=== PATIENT | male | born 1985 | race Caucasian/White ===

== ENCOUNTER → 2018-08-01 08:41 | Outpatient (CLI) | payer OTHER, SELFPAY ==
--- NOTE | 2018-08-01 08:58 | RAD_ITS ---
STUDY: X-RAY CHEST REASON FOR EXAM: Male, 32 years old. Right-sided chest pain for 2 years TECHNIQUE: PA and lateral views of the chest. COMPARISON: None. FINDINGS: The lungs are clear and expanded. There is no demonstrated pleural abnormality. Normal size heart. Normal mediastinum and briseyda. Normal visualized pulmonary arteries. Normal visualized aortic arch and descending thoracic aorta. Normal visualized thoracic spine. Normal visualized ribs, clavicles, and shoulders. There is no demonstrated abnormality of the visualized soft tissue structures of the upper abdomen. RAD/Chest PA and Lateral IMPRESSION: No acute cardiopulmonary process. Electronically Signed: Maynor Franks MD at 18:12 EST , Service support ,
[2018-08-01 09:53] LABS: Absolute Lymphocyte Count 3.55 X10^3/ul (0.83-4.51); Absolute Neutrophil Count 9.6 X10^3/uL (2.0-7.7); Basophil# 0.05 X10^3/uL; Basophil% 0.3 % (0-1); Eosinophil# 0.34 X10^3/uL; Eosinophils% 2.3 % (0-5); Hematocrit 46.1 % (40-54); Hemoglobin 15.3 g/dl (13.0-16.5); Lymphocyte # 3.55 X10^3/ul (4.0); Lymphocyte % 23.9 % (19-41); Mean Corp Hgb Conc 33.2 g/gl (32-36); Mean Corpuscular Volume 93.3 fL (80-94); Monocyte# 1.26 X10^3/uL; Monocyte% 8.5 % (0-10); Neutrophil # 9.61 X10^3/uL (2.7-7.7); Neutrophil % 64.6 % (47-70); Platelet Count 318 K/mm3 (150-450); RBC Distribution Width CV 13.1 % (11.6-14.6); RBC Distribution Width SD 44.8 fl (35.1-43.9); Red Blood Count 4.94 M/mm3 (4.6-6.2); White Blood Count 14.9 K/mm3 (4.4-11.0)
[2018-08-01 09:56] LABS: POSITIVE COUNT NO; POSITIVE DIFFERENTIAL NO; POSITIVE MORPHOLOGY NO
[2018-08-01 10:25] LABS: ALB/GLOB Ratio 1.1 RATIO (0.9-2.4); AST(SGOT) 30 U/L (15-37); Alanine Aminotransfer ALT/SGPT 78 U/L (16-61); Albumin, Serum 3.7 g/dL (3.2-5.0); Alkaline Phosphatase 104 U/L (45-117); Anion Gap 8 (5-15); BUN 16 mg/dL (7-18); BUN/Creat Ratio 18.6 RATIO (10-20); Calcium,Total 8.5 mg/dL (8.5-10.1); Chloride 106 mmol/L (98-107); Creatinine, Serum 0.86 mg/dL (0.70-1.30); EST Glomerular Filtration Rate 108 mL/min (>60); Est Glom Filt Rate - Afr Amer 130 mL/min (>60); Globulin 3.5 g/dL (2.2-4.2); Glucose 106 mg/dL (74-106); Potassium 3.6 mmol/L (3.5-5.1); Protein, Total 7.2 g/dL (6.4-8.2); Sodium Level 141 mmol/L (136-145); T4 Free Direct 0.82 ng/dL (0.76-1.46); Thyroid Stim Hormone (TSH) 4.96 uIU/mL (0.358-3.74)
== END ==
PROVIDERS: Family Provider Family Medicine; PCP Family Medicine; Referring Provider Family Medicine; Visit Provider Family Medicine
DX: R07.9 Chest pain, unspecified (principal); R53.83 Other fatigue
CPT/HCPCS: 36415; 71046; 80053; 84439; 84443; 85025

== ENCOUNTER 2018-09-24 00:33 | Observation (INO) | payer OTHER, SELFPAY ==
[2018-09-24] VITALS (8 sets, daily range): BP systolic 104–142; BP diastolic 70–103; PULSE 74–107; RESP 14–18; TEMP 36.4–37.2; O2SAT 95–100; BMI 23.9; BMI 23.8
--- NOTE | 2018-09-24 00:51 | RAD_ITS ---
STUDY: X-RAY - ACUTE ABDOMINAL SERIES REASON FOR EXAM: Male, 32 years old. Right-sided abdominal pain for 2 years. New-onset of vomiting and diarrhea. TECHNIQUE: Single view of the chest. Supine, upright view(s) of the abdomen were obtained. COMPARISON: November 08, 2016. FINDINGS: The lungs are clear and expanded. Normal size heart. Normal mediastinum and briseyda. Normal visualized pulmonary arteries. Normal visualized aortic arch and descending thoracic aorta. There is a non-specific bowel gas pattern. The soft tissue structures of the abdomen and pelvis are unremarkable. Normal visualized osseous structures. RAD/Acute Abdomen Inc Chest IMPRESSION: Normal x-ray examination of the chest, abdomen, and pelvis. Electronically Signed: Akshat De La Cruz MD at 2:17 EST , Service support ,
--- NOTE | 2018-09-24 00:53 | ED.VISSUMM ---
- ER Visit Summary Date of Service: 09/24/18 Chief Complaint: Vomiting and diarrhea History of Present Illness: The patient is a 32 M was seen vomiting diarrhea today after finding out he had to move. Chronic right-sided abdominal pain for past 2 years. Daily marijuana use. Patient report abdominal pain improving with hot showers. Has seen GI in [place] with a EGD in the past. There is been no findings. There has been mentioning of cannabis hyperemesis syndrome with the patient. No fevers. No urinary symptoms. Decreased appetite over the past 2 days. Physical Examination: General: Alert and oriented ?3, no acute distress HEENT: Normocephalic, atraumatic. Mild dry mucosa membranes Neck: supple, nontender. Cardiovascular: Regular rate 104 and rhythm, no murmurs Respiratory: Normal breath sounds, symmetric, no distress Abdomen: Soft, nontender, nondistended Extremities: Nontender, no edema, pulses intact ?4 Neuro: no focal neurological deficits. Test Results: Abdominal series x-ray: No acute process. CBC WBC 23.4, hemoglobin 19.9. Creatinine 1.5, potassium 3.6, lipase 74, liver enzymes ALP 128. Lactic acid 1.7. UA 25 leukocytes, nitrites, urine culture pending. Blood culture x2. Tox screen with THC and opiates. Abdominal CT with oral contrast: No acute process. Emergency Department Course and Treatment: Patient dry mucosa membranes, nausea vomiting diarrhea. No C. difficile risk factors. Treated IV fluids Zofran. With his history of THC with 2 years of pain, discussed concerns for cannabis hyperemesis syndrome. Capsaicin cream was used, he did have some improvement of symptoms. Reported some right-sided chest pain with a history of a pneumothorax in the past. I did obtain abdominal series which was negative. Labs however return white count of 23 with left shift, he did have a nonsurgical abdomen, history of intussusception, cholecystectomy, appendectomy. Afebrile. However with this elevation, p.o. contrast scan obtained due to his abdominal pain complaints. Return with no acute process. Tox urine was noted for THC and opiates, however he did receive morphine prior to obtaining the urine. UA returned leukocytes and nitrites. His lactic acid was in the normal range. With his white count, blood culture was obtained. He was started on Rocephin for concern for UTI findings and elevated WBCs.. No additional loose stools while in the department. Small emesis requiring initially Zofran and Phenergan. Continue IV fluids, heart rate did improve. He did have slight ALMA likely prerenal. His abdominal pain likely from his cannabis use. With patient's UTI and elevated white blood cell count, do feel he would benefit from hospitalization for continued management. Reports a decrease in appetite over the past couple days, he reports upper endoscopy in the past. Hospitalist is on page for discussion for admission. Treatment Plan: [] Disposition: Admission Impression: 1. Urinary tract infection 2. ALMA prerenal 3. Cannabis hyperemesis syndrome 4.dehydration 5. Abdominal pain This note was generated with [employer] dictation software. It may contain incorrect words, spelling, and punctuation that were not noted in review of the chart prior to signing ED Disposition - Plan for ED Patient: Disposition: Acute Care [facility] Diagnosis: Urinary tract infection, Acute kidney injury, Cannabis hyperemesis syndrome concurrent with and due to cannabis abuse, Dehydration, Abdominal pain Referrals: Duncan Medina MD [Primary Care Provider] -
[2018-09-24] MEDS: Ondansetron 4 MG/2 ML Vial IV ×2 (01:02→08:38)
[2018-09-24] MEDS: 0.9% Normal Saline 1,000 ML 1000 ML IV (01:02)
[2018-09-24 01:12] LABS: Absolute Lymphocyte Count 2.09 X10^3/ul (0.83-4.51); Absolute Neutrophil Count 18.7 X10^3/uL (2.0-7.7); Basophil# 0.06 X10^3/uL; Basophil% 0.3 % (0-1); Eosinophil# 0.01 X10^3/uL; Lymphocyte # 2.09 X10^3/ul (4.0); Lymphocyte % 8.9 % (19-41); Mean Corp Hgb Conc 35.4 g/gl (32-36); Mean Corpuscular Hgb 30.9 pg (27.0-32.0); Mean Corpuscular Volume 87.3 fL (80-94); Mean Platelet Vol. 9.9 fl (6.2-12.0); Monocyte# 2.43 X10^3/uL; Monocyte% 10.4 % (0-10); Neutrophil # 18.69 X10^3/uL (2.7-7.7); Neutrophil % 79.9 % (47-70); Platelet Count 376 K/mm3 (150-450); RBC Distribution Width CV 13.1 % (11.6-14.6); RBC Distribution Width SD 42.4 fl (35.1-43.9); Red Blood Count 6.44 M/mm3 (4.6-6.2); White Blood Count 23.4 K/mm3 (4.4-11.0)
[2018-09-24 01:13] LABS: Hematocrit 56.2 % (40-54)
[2018-09-24 01:16] LABS: Differential Indicated SCAN CRITERIA MET; Hemoglobin 19.9 g/dl (13.0-16.5); POSITIVE COUNT NO; POSITIVE DIFFERENTIAL YES; POSITIVE MORPHOLOGY NO
[2018-09-24 01:27] LABS: ALB/GLOB Ratio 1.3 RATIO (0.9-2.4); AST(SGOT) 18 U/L (15-37); Alanine Aminotransfer ALT/SGPT 44 U/L (16-61); Albumin, Serum 5.5 g/dL (3.2-5.0); Alkaline Phosphatase 128 U/L (45-117); Anion Gap 14 (5-15); BUN 23 mg/dL (7-18); BUN/Creat Ratio 14.5 RATIO (10-20); Calcium,Total 9.8 mg/dL (8.5-10.1); Chloride 103 mmol/L (98-107); Creatinine, Serum 1.59 mg/dL (0.70-1.30); EST Glomerular Filtration Rate 53 mL/min (>60); Est Glom Filt Rate - Afr Amer 64 mL/min (>60); Estimated Creatinine Clearance 67.59 ml/min; Globulin 4.3 g/dL (2.2-4.2); Glucose 152 mg/dL (74-106); Lipase 74 U/L (73-393); Potassium 3.6 mmol/L (3.5-5.1); Protein, Total 9.8 g/dL (6.4-8.2); Sodium Level 137 mmol/L (136-145)
[2018-09-24 01:29] LABS: Reactive Lymphocyte 2+
[2018-09-24] MEDS: Capsaicin 0.025% 1 APPLIC Tube TOPICAL (01:29)
--- NOTE | 2018-09-24 01:41 | CT_ITS ---
STUDY: CT ABDOMEN AND PELVIS WITHOUT CONTRAST REASON FOR EXAM: Male, 32 years old. Right-sided abdominal pain for 2 years with vomiting and diarrhea today RADIATION DOSAGE (If Supplied By Facility): CTDIvol = ( 6.39 ) mGy, DLP = ( 328.71 ) mGycm TECHNIQUE: Transaxial images were obtained from the dome of the diaphragm to the symphysis pubis with oral contrast, and without intravenous contrast. Sagittal and coronal images were reconstructed. Individualized dose optimization techniques were used for this CT. COMPARISON: None. FINDINGS: The visualized lung bases are unremarkable. The visualized portions of the heart are within normal limits. Normal liver. There is non-visualization of the gallbladder, which may be secondary to either contraction or a prior cholecystectomy. Normal spleen. Normal pancreas. Normal bilateral adrenal glands. Normal right kidney. 2 mm nonobstructing stone in the left kidney. Normal visualized stomach. Small bowel anastomoses on the left. Normal colon. Appendectomy. Multiple mesenteric clips. Normal abdominal aorta. Normal inferior vena cava. Normal retroperitoneum. Normal urinary bladder. There are prostatic calcifications. Normal abdominal wall. Bone island in the left femur. CT/Abdomen WITH ORAL Cont Only IMPRESSION: No evidence of acute intestinal pathology or acute obstructive uropathy. Electronically Signed: Sage Jacob MD at 4:16 EST Tel , Service support ,
[2018-09-24] MEDS: Morphine 4 MG/ML Syringe IV (01:53)
[2018-09-24] MEDS: 0.9% Normal Saline 1,000 ML 150 ML IV ×4 (01:56→19:56)
[2018-09-24 03:27] LABS: Lactic Acid 1.7 mmol/L (0.4-2.0)
[2018-09-24 03:58] LABS: Amphetamine Urine VISTA NEGATIVE (<1000 ng/mL); Barbiturate Urine VISTA NEGATIVE (< 200 ng/mL); Benzodiazepine Urine VISTA NEGATIVE (< 200 ng/mL); Cocaine Urine VISTA NEGATIVE (< 300 ng/mL); Ecstacy Urine VISTA NEGATIVE (< 500 ng/mL); Methadone Urine VISTA NEGATIVE (< 300 ng/mL); PCP Urine VISTA NEGATIVE (< 25 ng/mL); THC Urine VISTA POSITIVE (< 50 ng/mL); Vista UDS pH Range 6
[2018-09-24 04:05] LABS: Squamous Epithelial Cells - UA 0 SEEN /hpf (0-5)
[2018-09-24 04:07] LABS: Color, Urine Amber (Yellow); Glucose, Dipstick Normal (Normal); Leukocyte Esterase-Dipstick 25 /ul (Negative); Nitrite-Dipstick Positive (Negative); Occult Blood-Urine 50 /ul (Negative); Protein-Dipstick 100 mg/dl (Negative); Specific Gravity, Urine 1.025 (1.002-1.030); Urine Clarity Cloudy (Clear); Urine Urobilinogen 1 mg/dl (Normal)
[2018-09-24 04:08] LABS: Ketone-Dipstick 150 mg/dl (Negative); Urine Bilirubin Dipstick 1 mg/dL (Negative)
[2018-09-24 04:14] LABS: Bacteria 1+ /hpf (None Seen); Mucous, Urine 2+ /hpf (<or=2+); Red Blood Cells-Urine 0-5 SEEN /hpf (0-5); White Blood Cells 0-5 SEEN /hpf (0-5)
[2018-09-24 04:15] LABS: Hyaline Cast 5-10 SEEN /lpf (0-5)
[2018-09-24] MEDS: proMETHazine 25 MG/ML Syringe 6.25 MG IV ×2 (04:15→11:30)
[2018-09-24] MEDS: Ceftriaxone 1 GM/50 ML BAG IV ×3 (04:34→21:15)
--- NOTE | 2018-09-24 04:59 | PCM.HP.STD ---
History of Present Illness Date of Admission: 09/24/18 Chief Complaint: vomiting, fever The patient is a 32 year old M with past medical history of marijuana abuse, schizophrenia. He was admitted through the ED on 09/24/2018 with a complaint of fever and chills and nausea and vomiting for the past few days. Said he had vomited too many times he was having abdominal pain. He had also had some episodes of loose stool and said he had pain with bowel movements. He denied any burning with urination or frequent urination. He denies any cough or chest pain or palpitations or shortness of breath. Review of systems otherwise negative. [] In the ED he was afebrile labs showed creatinine of 1.59 with baseline of being all normal. CBC showed white cell count of 23.4 hemoglobin of 19.9. UA showed 1+ bacteria with 25 leukocyte esterase and positive nitrites. Urine tox was positive for opiates and cannabinoids. She has been admitted to be managed for AK I, UTI and vomiting likely due to cyclical vomiting from marijuana. Past Medical History Allergies diphenhydramine [From Benadryl] Adverse Reaction (Verified 03/08/17 10:08) UNABLE TO VOID Home Medications: Ambulatory Orders Medication Instructions Recorded Albuterol IH (ProAir) [Proair Hfa 2 puff INHALATION Q4H PRN PRN 03/08/17 (SP)Vent Pts] Quetiapine Fumarate [Seroquel] 100 mg PO QHS 03/08/17 Doxepin HCl 50 mg PO QHS 09/24/18 Levothyroxine [Synthroid] 50 mcg PO DAILY 09/24/18 Omeprazole [Prilosec] 20 mg PO QHS 09/24/18 Surgical History: cholecystectomy, - - surgery for intusussception, Psychiatric History: Schizophrenia Lives: With Family Smoking Status: Current every day smoker Alcohol: Occasional Drugs: None - *Family History Maternal History Items: Unknown Paternal History Items: No pertinent history Review of Systems Constitutional: Reports: Chills, Fever, Malaise, Weakness, Fatigue. Denies: Anorexia, Night Sweats Eyes: Denies: Blurred vision HEENT: Denies: Head Aches, Sinus Congestion, Sinus Drainage Cardiovascular: Denies: Chest Pain, Palpitations Respiratory: Denies: Cough, Shortness of breath at rest, Sputum production Gastrointestinal: Reports: Abdominal Pain, Diarrhea, Nausea, Vomiting. Denies: Constipation Genitourinary: Denies: Dysuria, Frequency, Urgency Musculoskeletal: Reports: Arm Pain Skin: Denies: Rash, Wounds Neurological: Denies: Numbness, Tingling, Focal weakness Psychiatric: Denies: Anxiety, Depression, Homicidal Ideations, Suicidal Ideations Hematologic/ Lymphatic: Denies: Easy Bruising, Easy Bleeding VTE Information - Inpt Only VTE Present on Admission: No VTE Pharm Prophylaxis ordered?: Yes Patient Problems: Active and Suspected Problems Urinary tract infection (Acute) Acute kidney injury (Acute) Cannabis hyperemesis syndrome concurrent with and due to cannabis abuse (Acute) Dehydration (Acute) Abdominal pain (Acute) - Physical Exam General: Alert, Oriented x3, Cooperative, - - looked very uncomfortable HEENT: Atraumatic, PERRLA, EOMI, Normocephalic Oral: Dry Mucosa Neck: Supple, No JVD, Negative Carotid Bruits Lungs: Clear to auscultation, Normal air movement, No rhonchi, No wheeze, No rales Cardiovascular: Regular rate, Regular Rhythm, Normal S1, Normal S2, No murmurs Abdomen: Bowel Sounds Present, Soft, - - mild generalised tenderness, no guarding or rebound tenderness. Well healed laparotomy scar Extremities: No clubbing, No cyanosis, No edema, Capillary Refill Less than 3 Seconds Skin: No rashes, No breakdown Musculoskeletal: No Tenderness to Palpation of Joints or Extremities Lymphatic: No Cervical, Supraclavicular, or Inguinal Adenopathy Neurological: Cranial nerves II-XII grossly intact, Neuro grossly intact, Motor Exam 5/5 strength throughout Psych/Mental Status: Normal Affect, Appropriate, Alert and oriented to time, place, person, mood and affect Vital Signs Temp Pulse Resp BP Pulse Ox 97.6 F L 75 15 134/97 H 99 09/24/18 03:04 09/24/18 03:04 09/24/18 03:04 09/24/18 03:04 09/24/18 03:04 Oxygen Delivery Method Room Air Weight: 167 lb Body Mass Index (BMI) 23.9 Laboratory Tests Past 24 Hrs 09/24/18 09/24/18 09/24/18 01:01 01:01 02:50 WBC 23.4 H RBC 6.44 H Hgb 19.9 H* Hct 56.2 H MCV 87.3 MCH 30.9 MCHC 35.4 RDW 13.1 RDW Differential 42.4 Plt Count 376 MPV 9.9 Immature Gran % (Auto) 0.500 Neut % (Auto) 79.9 H Lymph % (Auto) 8.9 L [place] % (Auto) 10.4 H Eos % (Auto) 0.0 Baso % (Auto) 0.3 Absolute Neuts (auto) 18.7 H Absolute Lymphs (auto) 2.09 Total Counted Not Reportable Diff Path Review May foll Reactive Lymphocytes 2+ Sodium 137 Potassium 3.6 Chloride 103 Carbon Dioxide 20.0 L Anion Gap 14 BUN 23 H Creatinine 1.59 H Estim Creat Clear Calc 67.59 Est GFR (MDRD) Af Amer 64 Est GFR (MDRD) Non-Af 53 L BUN/Creatinine Ratio 14.5 Glucose 152 H Lactic Acid 1.7 Calcium 9.8 Total Bilirubin 0.70 AST 18 ALT 44 Alkaline Phosphatase 128 H Total Protein 9.8 H Albumin 5.5 H Globulin 4.3 H Albumin/Globulin Ratio 1.3 Lipase 74 Urine Color Urine Clarity Urine pH Ur Specific [place] Urine Protein Urine Glucose (UA) Urine Ketones Urine Occult Blood Urine Nitrite Urine Bilirubin Urine Urobilinogen Ur Leukocyte Esterase Urine RBC Urine WBC Ur Squamous Epith Cells Urine Bacteria Hyaline Casts Urine Mucus Urine Opiates Screen Urine Methadone Screen Ur Barbiturates Screen Ur Phencyclidine Scrn Ur Amphetamines Screen U Methamphetamin-MDMA U Benzodiazepines Scrn Urine Cocaine Screen U Cannabinoids Screen Ur Drug Screen Comment 09/24/18 09/24/18 03:30 03:30 WBC RBC Hgb Hct MCV MCH MCHC RDW RDW Differential Plt Count MPV Immature Gran % (Auto) Neut % (Auto) Lymph % (Auto) Gem % (Auto) Eos % (Auto) Baso % (Auto) Absolute Neuts (auto) Absolute Lymphs (auto) Total Counted Diff Path Review Reactive Lymphocytes Sodium Potassium Chloride Carbon Dioxide Anion Gap BUN Creatinine Estim Creat Clear Calc Est GFR (MDRD) Af Amer Est GFR (MDRD) Non-Af BUN/Creatinine Ratio Glucose Lactic Acid Calcium Total Bilirubin AST ALT Alkaline Phosphatase Total Protein Albumin Globulin Albumin/Globulin Ratio Lipase Urine Color April Urine Clarity Cloudy Urine pH 6.0 Ur Specific [place] 1.025 Urine Protein 100 H Urine Glucose (UA) Normal Urine Ketones 150 H Urine Occult Blood 50 H Urine Nitrite Positive H Urine Bilirubin 1 H Urine Urobilinogen 1 H Ur Leukocyte Esterase 25 H Urine RBC 0-5 SEEN Urine WBC 0-5 SEEN Ur Squamous Epith Cells 0 SEEN Urine Bacteria 1+ Hyaline Casts 5-10 SEEN Urine Mucus 2+ Urine Opiates Screen POSITIVE H Urine Methadone Screen NEGATIVE Ur Barbiturates Screen NEGATIVE Ur Phencyclidine Scrn NEGATIVE Ur Amphetamines Screen NEGATIVE U Methamphetamin-MDMA NEGATIVE U Benzodiazepines Scrn NEGATIVE Urine Cocaine Screen NEGATIVE U Cannabinoids Screen POSITIVE H Ur Drug Screen Comment Diagnostic Data Acute Abdomen Series 09/24/18 00:51 IMPRESSION: Normal x-ray examination of the chest, abdomen, and pelvis. Electronically Signed: Akshat De La Cruz MD at 2:17 EST , Service support , Abdomen CT 09/24/18 01:41 IMPRESSION: No evidence of acute intestinal pathology or acute obstructive uropathy. Electronically Signed: Sage Jacob MD at 4:16 EST Tel , Service support , Assessment/Plan All Active Problems Urinary tract infection (Acute) Acute kidney injury (Acute) Cannabis hyperemesis syndrome concurrent with and due to cannabis abuse (Acute) Dehydration (Acute) Abdominal pain (Acute) 32 y/o presenting with fever, nausea and vomiting. 1. UTI UA positive for UTI; has no urinary symptoms and has been vomiting CT abdomen and acute abdomen series o/a of abdominal pain were negative for UTI wbc was 23.4 admit to med surg hydrate with IVF was given IV ceftriaxone in ED; will continue await blood and urine cultures 2. ALMA due to dehydration Creatinine is 1.59 baseline being less than 1. Patient has been vomiting and looks very dry. Will hydrate with IV fluids and monitor. 3. Cyclical vomiting due to marijuana use. Patient has been vomiting for the past few days. And he uses marijuana frequently and states he has been vomiting like that in the past and was told to quit but has not. Will give Zofran for nausea. Hydrated with IV fluids. Patient counseled strongly to quit. 4 hypothyroidism: On Synthroid. 5. Schizophrenia.: On Seroquel. DVT prophylaxis: Lovenox. Code Visit OBSV E&M: 46141 Initial observation care L3
--- NOTE | 2018-09-24 05:03 | HP.PCM_ITS ---
History of Present Illness Date of Admission: 09/24/18 Chief Complaint: vomiting, fever The patient is a 32 year old M with past medical history of marijuana abuse, schizophrenia. He was admitted through the ED on 09/24/2018 with a complaint of fever and chills and nausea and vomiting for the past few days. Said he had vomited too many times he was having abdominal pain. He had also had some episodes of loose stool and said he had pain with bowel movements. He denied any burning with urination or frequent urination. He denies any cough or chest pain or palpitations or shortness of breath. Review of systems otherwise negative. [] In the ED he was afebrile labs showed creatinine of 1.59 with baseline of being all normal. CBC showed white cell count of 23.4 hemoglobin of 19.9. UA showed 1+ bacteria with 25 leukocyte esterase and positive nitrites. Urine tox was positive for opiates and cannabinoids. She has been admitted to be managed for AK I, UTI and vomiting likely due to cyclical vomiting from marijuana. Past Medical History Allergies diphenhydramine [From Benadryl] Adverse Reaction (Verified 03/08/17 10:08) UNABLE TO VOID Home Medications: Ambulatory Orders Medication Instructions Recorded Albuterol IH (ProAir) [Proair Hfa 2 puff INHALATION Q4H PRN PRN 03/08/17 (SP)Vent Pts] Quetiapine Fumarate [Seroquel] 100 mg PO QHS 03/08/17 Doxepin HCl 50 mg PO QHS 09/24/18 Levothyroxine [Synthroid] 50 mcg PO DAILY 09/24/18 Omeprazole [Prilosec] 20 mg PO QHS 09/24/18 Surgical History: cholecystectomy, - - surgery for intusussception, Psychiatric History: Schizophrenia Lives: With Family Smoking Status: Current every day smoker Alcohol: Occasional Drugs: None - *Family History Maternal History Items: Unknown Paternal History Items: No pertinent history Review of Systems Constitutional: Reports: Chills, Fever, Malaise, Weakness, Fatigue. Denies: Anorexia, Night Sweats Eyes: Denies: Blurred vision HEENT: Denies: Head Aches, Sinus Congestion, Sinus Drainage Cardiovascular: Denies: Chest Pain, Palpitations Respiratory: Denies: Cough, Shortness of breath at rest, Sputum production Gastrointestinal: Reports: Abdominal Pain, Diarrhea, Nausea, Vomiting. Denies: Constipation Genitourinary: Denies: Dysuria, Frequency, Urgency Musculoskeletal: Reports: Arm Pain Skin: Denies: Rash, Wounds Neurological: Denies: Numbness, Tingling, Focal weakness Psychiatric: Denies: Anxiety, Depression, Homicidal Ideations, Suicidal Ideations Hematologic/ Lymphatic: Denies: Easy Bruising, Easy Bleeding VTE Information - Inpt Only VTE Present on Admission: No VTE Pharm Prophylaxis ordered?: Yes Patient Problems: Active and Suspected Problems Urinary tract infection (Acute) Acute kidney injury (Acute) Cannabis hyperemesis syndrome concurrent with and due to cannabis abuse (Acute) Dehydration (Acute) Abdominal pain (Acute) - Physical Exam General: Alert, Oriented x3, Cooperative, - - looked very uncomfortable HEENT: Atraumatic, PERRLA, EOMI, Normocephalic Oral: Dry Mucosa Neck: Supple, No JVD, Negative Carotid Bruits Lungs: Clear to auscultation, Normal air movement, No rhonchi, No wheeze, No rales Cardiovascular: Regular rate, Regular Rhythm, Normal S1, Normal S2, No murmurs Abdomen: Bowel Sounds Present, Soft, - - mild generalised tenderness, no guarding or rebound tenderness. Well healed laparotomy scar Extremities: No clubbing, No cyanosis, No edema, Capillary Refill Less than 3 Seconds Skin: No rashes, No breakdown Musculoskeletal: No Tenderness to Palpation of Joints or Extremities Lymphatic: No Cervical, Supraclavicular, or Inguinal Adenopathy Neurological: Cranial nerves II-XII grossly intact, Neuro grossly intact, Motor Exam 5/5 strength throughout Psych/Mental Status: Normal Affect, Appropriate, Alert and oriented to time, place, person, mood and affect Vital Signs Temp Pulse Resp BP Pulse Ox 97.6 F L 75 15 134/97 H 99 09/24/18 03:04 09/24/18 03:04 09/24/18 03:04 09/24/18 03:04 09/24/18 03:04 Oxygen Delivery Method Room Air Weight: 167 lb Body Mass Index (BMI) 23.9 Laboratory Tests Past 24 Hrs 09/24/18 09/24/18 09/24/18 01:01 01:01 02:50 WBC 23.4 H RBC 6.44 H Hgb 19.9 H* Hct 56.2 H MCV 87.3 MCH 30.9 MCHC 35.4 RDW 13.1 RDW Differential 42.4 Plt Count 376 MPV 9.9 Immature Gran % (Auto) 0.500 Neut % (Auto) 79.9 H Lymph % (Auto) 8.9 L [place] % (Auto) 10.4 H Eos % (Auto) 0.0 Baso % (Auto) 0.3 Absolute Neuts (auto) 18.7 H Absolute Lymphs (auto) 2.09 Total Counted Not Reportable Diff Path Review May foll Reactive Lymphocytes 2+ Sodium 137 Potassium 3.6 Chloride 103 Carbon Dioxide 20.0 L Anion Gap 14 BUN 23 H Creatinine 1.59 H Estim Creat Clear Calc 67.59 Est GFR (MDRD) Af Amer 64 Est GFR (MDRD) Non-Af 53 L BUN/Creatinine Ratio 14.5 Glucose 152 H Lactic Acid 1.7 Calcium 9.8 Total Bilirubin 0.70 AST 18 ALT 44 Alkaline Phosphatase 128 H Total Protein 9.8 H Albumin 5.5 H Globulin 4.3 H Albumin/Globulin Ratio 1.3 Lipase 74 Urine Color Urine Clarity Urine pH Ur Specific [place] Urine Protein Urine Glucose (UA) Urine Ketones Urine Occult Blood Urine Nitrite Urine Bilirubin Urine Urobilinogen Ur Leukocyte Esterase Urine RBC Urine WBC Ur Squamous Epith Cells Urine Bacteria Hyaline Casts Urine Mucus Urine Opiates Screen Urine Methadone Screen Ur Barbiturates Screen Ur Phencyclidine Scrn Ur Amphetamines Screen U Methamphetamin-MDMA U Benzodiazepines Scrn Urine Cocaine Screen U Cannabinoids Screen Ur Drug Screen Comment 09/24/18 09/24/18 03:30 03:30 WBC RBC Hgb Hct MCV MCH MCHC RDW RDW Differential Plt Count MPV Immature Gran % (Auto) Neut % (Auto) Lymph % (Auto) [place] % (Auto) Eos % (Auto) Baso % (Auto) Absolute Neuts (auto) Absolute Lymphs (auto) Total Counted Diff Path Review Reactive Lymphocytes Sodium Potassium Chloride Carbon Dioxide Anion Gap BUN Creatinine Estim Creat Clear Calc Est GFR (MDRD) Af Amer Est GFR (MDRD) Non-Af BUN/Creatinine Ratio Glucose Lactic Acid Calcium Total Bilirubin AST ALT Alkaline Phosphatase Total Protein Albumin Globulin Albumin/Globulin Ratio Lipase Urine Color April Urine Clarity Cloudy Urine pH 6.0 Ur Specific [place] 1.025 Urine Protein 100 H Urine Glucose (UA) Normal Urine Ketones 150 H Urine Occult Blood 50 H Urine Nitrite Positive H Urine Bilirubin 1 H Urine Urobilinogen 1 H Ur Leukocyte Esterase 25 H Urine RBC 0-5 SEEN Urine WBC 0-5 SEEN Ur Squamous Epith Cells 0 SEEN Urine Bacteria 1+ Hyaline Casts 5-10 SEEN Urine Mucus 2+ Urine Opiates Screen POSITIVE H Urine Methadone Screen NEGATIVE Ur Barbiturates Screen NEGATIVE Ur Phencyclidine Scrn NEGATIVE Ur Amphetamines Screen NEGATIVE U Methamphetamin-MDMA NEGATIVE U Benzodiazepines Scrn NEGATIVE Urine Cocaine Screen NEGATIVE U Cannabinoids Screen POSITIVE H Ur Drug Screen Comment Diagnostic Data Acute Abdomen Series 09/24/18 00:51 IMPRESSION: Normal x-ray examination of the chest, abdomen, and pelvis. Electronically Signed: Akshat De La Cruz MD at 2:17 EST , Service support , Abdomen CT 09/24/18 01:41 IMPRESSION: No evidence of acute intestinal pathology or acute obstructive uropathy. Electronically Signed: Sage Jacob MD at 4:16 EST Tel , Service support , Assessment/Plan All Active Problems Urinary tract infection (Acute) Acute kidney injury (Acute) Cannabis hyperemesis syndrome concurrent with and due to cannabis abuse (Acute) Dehydration (Acute) Abdominal pain (Acute) 32 y/o presenting with fever, nausea and vomiting. 1. UTI * UA positive for UTI; has no urinary symptoms and has been vomiting * CT abdomen and acute abdomen series o/a of abdominal pain were negative for UTI * wbc was 23.4 * admit to med surg * hydrate with IVF * was given IV ceftriaxone in ED; will continue * await blood and urine cultures * 2. ALMA due to dehydration * Creatinine is 1.59 baseline being less than 1. Patient has been vomiting and looks very dry. * Will hydrate with IV fluids and monitor. * 3. Cyclical vomiting due to marijuana use. * Patient has been vomiting for the past few days. And he uses marijuana frequently and states he has been vomiting like that in the past and was told to quit but has not. * Will give Zofran for nausea. Hydrated with IV fluids. * Patient counseled strongly to quit. * 4 hypothyroidism: On Synthroid. 5. Schizophrenia.: On Seroquel. DVT prophylaxis: Lovenox. Code Visit OBSV E&M: 76394 Initial observation care L3
[2018-09-24] MEDS: Levothyroxine 50 MCG Tablet PO (06:30)
[2018-09-24 06:52] LABS: Absolute Lymphocyte Count 0.95 X10^3/ul (0.83-4.51); Absolute Neutrophil Count 16.4 X10^3/uL (2.0-7.7); Basophil# 0.04 X10^3/uL; Basophil% 0.2 % (0-1); Hematocrit 50.3 % (40-54); Hemoglobin 16.9 g/dl (13.0-16.5); Lymphocyte # 0.95 X10^3/ul (4.0); Lymphocyte % 5.3 % (19-41); Mean Corp Hgb Conc 33.6 g/gl (32-36); Mean Corpuscular Hgb 31.2 pg (27.0-32.0); Mean Corpuscular Volume 92.8 fL (80-94); Monocyte# 0.41 X10^3/uL; Monocyte% 2.3 % (0-10); Neutrophil # 16.42 X10^3/uL (2.7-7.7); Neutrophil % 91.7 % (47-70); Platelet Count 314 K/mm3 (150-450); RBC Distribution Width SD 43.7 fl (35.1-43.9); Red Blood Count 5.42 M/mm3 (4.6-6.2); White Blood Count 17.9 K/mm3 (4.4-11.0)
[2018-09-24 06:56] LABS: POSITIVE COUNT NO; POSITIVE DIFFERENTIAL NO; POSITIVE MORPHOLOGY NO
[2018-09-24 07:12] LABS: Anion Gap 14 (5-15); BUN 22 mg/dL (7-18); BUN/Creat Ratio 21.8 RATIO (10-20); Calcium,Total 8.8 mg/dL (8.5-10.1); Chloride 107 mmol/L (98-107); Creatinine, Serum 1.01 mg/dL (0.70-1.30); EST Glomerular Filtration Rate 89 mL/min (>60); Est Glom Filt Rate - Afr Amer 108 mL/min (>60); Estimated Creatinine Clearance 106.41 ml/min; Glucose 146 mg/dL (74-106); Potassium 3.4 mmol/L (3.5-5.1); Sodium Level 140 mmol/L (136-145)
[2018-09-24] MEDS: 0.9% NaCl Peripheral Flush Adult/Peds IV ×2 (08:38→11:35)
--- NOTE | 2018-09-24 08:43 | NURSING ---
This nurse into room to medicate patient for c/o nausea. Found pt in the shower. Patient instructed that he needs to call staff before getting in the shower, as he needs saline locked from his IV and the IV needs wrapped. Pt voiced understanding.
[2018-09-24] MEDS: Potassium Chloride 10mEq/100mL 10 MEQ/100 ML IV.SOLN. 100 MEQ IV BOLUS ×4 (11:38→16:14)
[2018-09-24] MEDS: Enoxaparin 30 MG/0.3 ML Syringe SC (12:28)
[2018-09-24] MEDS: DOXEPIN HCL 50 MG CAPSULE PO (12:40)
[2018-09-24] MEDS: Dicyclomine 10 MG Capsule PO ×2 (12:40→16:15)
[2018-09-24 14:43] LABS: Pathologist Review Reviewed
--- NOTE | 2018-09-24 16:54 | PN_ITS ---
Patient Problems: Active and Suspected Problems Urinary tract infection (Acute) Acute kidney injury (Acute) Cannabis hyperemesis syndrome concurrent with and due to cannabis abuse (Acute) Dehydration (Acute) Abdominal pain (Acute) Subjective: Patient was seen and examined. He complained of severe nausea. Been taking hot showers as well. Admits to use of marijuana. Last use was on Saturday. Denied diarrhea, fever but admits to chills. Vitals/I&O's: Vital Signs Temp Pulse Resp BP Pulse Ox 99.0 F 82 18 137/95 H 100 09/24/18 12:23 09/24/18 12:23 09/24/18 12:23 09/24/18 12:23 09/24/18 12:23 Oxygen Delivery Method Room Air Weight: 75.3 kg Body Mass Index (BMI) 23.8 Intake and Output for Last 24 Hours 09/22/18 09/23/18 09/24/18 23:59 23:59 23:59 Intake Total 1263 / 1263 Output Total 350 / 350 Balance 913 / 913 General: Alert, Oriented x3, Cooperative, - - appears in discomfort HEENT: Atraumatic, PERRLA, EOMI, Normocephalic Oral: Moist Mucosa Neck: Supple Lungs: Clear to auscultation, Normal air movement Cardiovascular: Regular rate, Regular Rhythm, Normal S1, No murmurs Abdomen: Bowel Sounds Present, Soft, Non Tender, Non-Distended Extremities: No edema Skin: No rashes, No breakdown Musculoskeletal: No Tenderness to Palpation of Joints or Extremities Lymphatic: No Cervical, Supraclavicular, or Inguinal Adenopathy Neurological: Cranial nerves II-XII grossly intact Psych/Mental Status: Normal Affect, Appropriate Laboratory Results 09/24/18 01:01: WBC 23.4 H, RBC 6.44 H, Hgb 19.9 H*, Hct 56.2 H, MCV 87.3, MCH 30.9, MCHC 35.4, RDW 13.1, RDW Differential 42.4, Plt Count 376, MPV 9.9, Immature Gran % (Auto) 0.500, Neut % (Auto) 79.9 H, Lymph % (Auto) 8.9 L, [place] % (Auto) 10.4 H, Eos % (Auto) 0.0, Baso % (Auto) 0.3, Absolute Neuts (auto) 18.7 H , Absolute Lymphs (auto) 2.09, Total Counted Not Reportable, Diff Path Review Reviewed, Reactive Lymphocytes 2+ 09/24/18 01:01: Sodium 137, Potassium 3.6, Chloride 103, Carbon Dioxide 20.0 L, Anion Gap 14, BUN 23 H, Creatinine 1.59 H, Estim Creat Clear Calc 67.59, Est GFR (MDRD) Af Amer 64, Est GFR (MDRD) Non-Af 53 L, BUN/Creatinine Ratio 14.5, Glucose 152 H, Calcium 9.8, Total Bilirubin 0.70, AST 18, ALT 44, Alkaline Phosphatase 128 H, Total Protein 9.8 H, Albumin 5.5 H, Globulin 4.3 H, Albumin/Globulin Ratio 1.3, Lipase 74 09/24/18 02:50: Lactic Acid 1.7 09/24/18 03:30: Urine Color April, Urine Clarity Cloudy, Urine pH 6.0, Ur Specific [place] 1.025, Urine Protein 100 H, Urine Glucose (UA) Normal, Urine Ketones 150 H, Urine Occult Blood 50 H, Urine Nitrite Positive H, Urine Bilirubin 1 H, Urine Urobilinogen 1 H, Ur Leukocyte Esterase 25 H, Urine RBC 0-5 SEEN, Urine WBC 0-5 SEEN, Ur Squamous Epith Cells 0 SEEN, Urine Bacteria 1+, Hyaline Casts 5-10 SEEN, Urine Mucus 2+ 09/24/18 03:30: Urine Opiates Screen POSITIVE H, Urine Methadone Screen NEGATIVE, Ur Barbiturates Screen NEGATIVE, Ur Phencyclidine Scrn NEGATIVE, Ur Amphetamines Screen NEGATIVE, U Methamphetamin-MDMA NEGATIVE, U Benzodiazepines Scrn NEGATIVE, Urine Cocaine Screen NEGATIVE, U Cannabinoids Screen POSITIVE H, Ur Drug Screen Comment 09/24/18 06:40: Sodium 140, Potassium 3.4 L, Chloride 107, Carbon Dioxide 19.0 L , Anion Gap 14, BUN 22 H, Creatinine 1.01, Estim Creat Clear Calc 106.41, Est GFR (MDRD) Af Amer 108, Est GFR (MDRD) Non-Af 89, BUN/Creatinine Ratio 21.8 H, Glucose 146 H, Calcium 8.8 09/24/18 06:40: WBC 17.9 H, RBC 5.42, Hgb 16.9 H, Hct 50.3, MCV 92.8, MCH 31.2, MCHC 33.6, RDW 13.0, RDW Differential 43.7, Plt Count 314, MPV 10.0, Immature Gran % (Auto) 0.500, Neut % (Auto) 91.7 H, Lymph % (Auto) 5.3 L, [place] % (Auto) 2.3, Eos % (Auto) 0.0, Baso % (Auto) 0.2, Absolute Neuts (auto) 16.4 H, Absolute Lymphs (auto) 0.95, Total Counted Not Reportable Current Medications Albuterol Sulfate (Ventolin Aerosols) 2.5 mg INHALATION Q4H PRN PRN Dicyclomine HCl (Bentyl) 10 mg PO TIDAC [facility] Last Admin: 09/24/18 16:15 Dose: 10 mg Doxepin HCl (Doxepin Hcl) 50 mg PO DAILY [facility] Last Admin: 09/24/18 12:40 Dose: 50 mg Enoxaparin Sodium (Lovenox) 30 mg SC DAILY@1000 [facility] Last Admin: 09/24/18 12:28 Dose: 30 mg Sodium Chloride () 1,000 mls @ 150 mls/hr IV .Q6H40M [facility] Last Admin: 09/24/18 12:44 Dose: 150 mls/hr Ceftriaxone Sodium (Rocephin) 1 gm in 50 mls @ 100 mls/hr IV Q12 [facility] Last Admin: 09/24/18 12:37 Dose: 100 mls/hr Pantoprazole Sodium 40 mg/ (Sodium Chloride) 110 mls @ 330 mls/hr IV Q12 [facility] Last Admin: 09/24/18 10:42 Dose: 330 mls/hr Levothyroxine Sodium (Synthroid) 50 mcg PO DAILY@0600 [facility] Last Admin: 09/24/18 06:30 Dose: 50 mcg Magnesium Hydroxide (Milk Of Magnesia) 30 ml PO DAILY PRN PRN PRN Reason: Constipation Morphine Sulfate () 2 mg IV Q4H PRN PRN PRN Reason: SEVERE PAIN (6-10/10) Nutritional Formula (Lactose Free) (Ensure Enlive) 120 ml PO 4X/DAY [facility] Last Admin: 09/24/18 14:13 Dose: Not Given Ondansetron HCl (Zofran) 4 mg IV Q6H PRN PRN PRN Reason: NAUSEA/VOMITING Last Admin: 09/24/18 08:38 Dose: 4 mg Prochlorperazine Edisylate (Compazine Iv) 5 mg IV Q4H PRN PRN PRN Reason: NAUSEA/VOMITING Promethazine HCl (Phenergan) 6.25 mg IV Q6H PRN PRN PRN Reason: NAUSEA/VOMITING Last Admin: 09/24/18 11:30 Dose: 6.25 mg Quetiapine Fumarate (Seroquel) 100 mg PO QHS [facility] Sodium Chloride () 5 - 15 ml IV UD PRN PRN Reason: SALINE FLUSH Last Admin: 09/24/18 11:35 Dose: 15 ml Medical Necessity - Tobacco Use Smoking Status: Current every day smoker Assessment/Plan All Active Problems Urinary tract infection (Acute) Acute kidney injury (Acute) Cannabis hyperemesis syndrome concurrent with and due to cannabis abuse (Acute) Dehydration (Acute) Abdominal pain (Acute) 32 y/o presenting with fever, nausea and vomiting. He admits to use of marijuana. CT of the abdomen and pelvis were negative 1. Persistent nausea and vomiting secondary to cyclical vomiting syndrome, patient is being managed symptomatically, will continue with IVF and antiemetics 2. Possible UTI, leucocytosis improved, on IV ceftriaxone 3. ALMA scondary to dehydration from persistent nausea and vomiting, improved Will continue on IVF 4. Hypothyroidism, on levothyroxine 5. Schizophrenia, on seroquel 6. DVT PPx- Lovenox SC Code Visit Inpatient E&M: 28917 Subs Hosp L2
[2018-09-24] MEDS: QUEtiapine 100 MG Tablet PO (21:15)
[2018-09-25 02:15] VITALS: BP 126/80; PULSE 88; RESP 18; TEMP 36.7; O2SAT 98
[2018-09-25] MEDS: 0.9% Normal Saline 1,000 ML 150 ML IV (02:15)
[2018-09-25 06:07] LABS: Absolute Lymphocyte Count 2.59 X10^3/ul (0.83-4.51); Absolute Neutrophil Count 5.7 X10^3/uL (2.0-7.7); Basophil# 0.05 X10^3/uL; Basophil% 0.5 % (0-1); Eosinophils% 1.1 % (0-5); Hematocrit 36.5 % (40-54); Hemoglobin 12.3 g/dl (13.0-16.5); Lymphocyte # 2.59 X10^3/ul (4.0); Lymphocyte % 27.6 % (19-41); Mean Corp Hgb Conc 33.7 g/gl (32-36); Mean Corpuscular Hgb 30.6 pg (27.0-32.0); Mean Corpuscular Volume 90.8 fL (80-94); Monocyte# 0.94 X10^3/uL; Neutrophil # 5.68 X10^3/uL (2.7-7.7); Neutrophil % 60.6 % (47-70); Platelet Count 242 K/mm3 (150-450); RBC Distribution Width CV 12.6 % (11.6-14.6); RBC Distribution Width SD 41.7 fl (35.1-43.9); Red Blood Count 4.02 M/mm3 (4.6-6.2); White Blood Count 9.4 K/mm3 (4.4-11.0)
[2018-09-25 06:08] LABS: POSITIVE COUNT NO; POSITIVE DIFFERENTIAL NO; POSITIVE MORPHOLOGY NO
[2018-09-25 06:24] LABS: Anion Gap 8 (5-15); BUN 11 mg/dL (7-18); BUN/Creat Ratio 17.4 RATIO (10-20); Calcium,Total 7.6 mg/dL (8.5-10.1); Chloride 113 mmol/L (98-107); Creatinine, Serum 0.63 mg/dL (0.70-1.30); EST Glomerular Filtration Rate 154 mL/min (>60); Est Glom Filt Rate - Afr Amer 186 mL/min (>60); Estimated Creatinine Clearance 170.59 ml/min; Glucose 95 mg/dL (74-106); Potassium 3.5 mmol/L (3.5-5.1); Sodium Level 142 mmol/L (136-145)
[2018-09-25] MEDS: Levothyroxine 50 MCG Tablet PO (06:24)
[2018-09-25] MEDS: Dicyclomine 10 MG Capsule PO ×2 (06:24→11:56)
[2018-09-25 08:08] VITALS: BP 115/70; PULSE 80; RESP 18; TEMP 36.7; O2SAT 98
--- NOTE | 2018-09-25 08:38 | PN_ITS ---
Patient Problems: Active and Suspected Problems Urinary tract infection (Acute) Acute kidney injury (Acute) Cannabis hyperemesis syndrome concurrent with and due to cannabis abuse (Acute) Dehydration (Acute) Abdominal pain (Acute) Vitals/I&O's: Vital Signs Temp Pulse Resp BP Pulse Ox 98.0 F 80 18 115/70 98 09/25/18 08:08 09/25/18 08:08 09/25/18 08:08 09/25/18 08:08 09/25/18 08:08 Oxygen Delivery Method Room Air Weight: 75.3 kg Body Mass Index (BMI) 23.8 Intake and Output for Last 24 Hours 09/23/18 09/24/18 09/25/18 23:59 23:59 23:59 Intake Total 1263 / 1263 2095 Output Total 350 / 350 Balance 913 / 913 2095 Laboratory Results 09/24/18 01:01: Diff Path Review Reviewed 09/25/18 05:50: WBC 9.4, RBC 4.02 L, Hgb 12.3 L, Hct 36.5 L, MCV 90.8, MCH 30.6, MCHC 33.7, RDW 12.6, RDW Differential 41.7, Plt Count 242, MPV 10.0, Immature Gran % (Auto) 0.200, Neut % (Auto) 60.6, Lymph % (Auto) 27.6, [place] % (Auto) 10.0, Eos % (Auto) 1.1, Baso % (Auto) 0.5, Absolute Neuts (auto) 5.7, Absolute Lymphs (auto) 2.59, Total Counted Not Reportable 09/25/18 05:50: Sodium 142, Potassium 3.5, Chloride 113 H, Carbon Dioxide 21.0, Anion Gap 8, BUN 11, Creatinine 0.63 L, Estim Creat Clear Calc 170.59, Est GFR (MDRD) Af Amer 186, Est GFR (MDRD) Non-Af 154, BUN/Creatinine Ratio 17.4, Glucose 95, Calcium 7.6 L Current Medications Albuterol Sulfate (Ventolin Aerosols) 2.5 mg INHALATION Q4H PRN PRN Dicyclomine HCl (Bentyl) 10 mg PO TIDAC [facility] Last Admin: 09/25/18 06:24 Dose: 10 mg Doxepin HCl (Doxepin Hcl) 50 mg PO DAILY [facility] Last Admin: 09/24/18 12:40 Dose: 50 mg Enoxaparin Sodium (Lovenox) 30 mg SC DAILY@1000 [facility] Last Admin: 09/24/18 12:28 Dose: 30 mg Sodium Chloride () 1,000 mls @ 150 mls/hr IV .Q6H40M [facility] Last Admin: 09/25/18 02:15 Dose: 150 mls/hr Ceftriaxone Sodium (Rocephin) 1 gm in 50 mls @ 100 mls/hr IV Q12 [facility] Last Admin: 09/24/18 21:15 Dose: 100 mls/hr Pantoprazole Sodium 40 mg/ (Sodium Chloride) 110 mls @ 330 mls/hr IV Q12 [facility] Last Admin: 09/24/18 21:15 Dose: 330 mls/hr Levothyroxine Sodium (Synthroid) 50 mcg PO DAILY@0600 [facility] Last Admin: 09/25/18 06:24 Dose: 50 mcg Magnesium Hydroxide (Milk Of Magnesia) 30 ml PO DAILY PRN PRN PRN Reason: Constipation Morphine Sulfate () 2 mg IV Q4H PRN PRN PRN Reason: SEVERE PAIN (6-10/10) Nutritional Formula (Lactose Free) (Ensure Enlive) 120 ml PO 4X/DAY [facility] Last Admin: 09/24/18 21:15 Dose: 120 ml Ondansetron HCl (Zofran) 4 mg IV Q6H PRN PRN PRN Reason: NAUSEA/VOMITING Last Admin: 09/24/18 08:38 Dose: 4 mg Prochlorperazine Edisylate (Compazine Iv) 5 mg IV Q4H PRN PRN PRN Reason: NAUSEA/VOMITING Promethazine HCl (Phenergan) 6.25 mg IV Q6H PRN PRN PRN Reason: NAUSEA/VOMITING Last Admin: 09/24/18 11:30 Dose: 6.25 mg Quetiapine Fumarate (Seroquel) 100 mg PO QHS [facility] Last Admin: 09/24/18 21:15 Dose: 100 mg Sodium Chloride () 5 - 15 ml IV UD PRN PRN Reason: SALINE FLUSH Last Admin: 09/24/18 11:35 Dose: 15 ml Medical Necessity - Tobacco Use Smoking Status: Current every day smoker Assessment/Plan All Active Problems Urinary tract infection (Acute) Acute kidney injury (Acute) Cannabis hyperemesis syndrome concurrent with and due to cannabis abuse (Acute) Dehydration (Acute) Abdominal pain (Acute)
--- NOTE | 2018-09-25 09:07 | PCA ---
Sent request for medical records to [facility], [facility] and [facility]. Havent received any at this time.
--- NOTE | 2018-09-25 09:15 | DCINST_ITS ---
- Discharge Diagnoses Current Active Problems: Current Active and Chronic Problems Urinary tract infection (Acute) Acute kidney injury (Acute) Cannabis hyperemesis syndrome concurrent with and due to cannabis abuse (Acute) Dehydration (Acute) Abdominal pain (Acute) Reason(s) for Visit for Discharge Instructions: Intractable nausea and vomiting You will use the following diet at home:: Regular Your food should be the consistency of: Regular Your liquids should be the consistency of: Regular/Thin Discharge Activity: Return to Normal Activity Additional Instructions: You have been strongly advised to quit using marijuana. Complete your antibiotics. Continue to keep yourself hydrated. You should follow-up with your primary care dcotor within 2 weeks. Allergies/Adverse Reactions: Allergies diphenhydramine [From Benadryl] Adverse Reaction (Verified 03/08/17 10:08) UNABLE TO VOID Medications to take at Discharge Albuterol IH (ProAir) [Proair Hfa] 2 puff INHALATION Q4H PRN PRN 03/08/17 Quetiapine Fumarate [Seroquel] 100 mg PO QHS 03/08/17 Doxepin HCl 50 mg PO QHS 09/24/18 Levothyroxine [Synthroid] 50 mcg PO DAILY 09/24/18 Omeprazole [Prilosec] 20 mg PO QHS 09/24/18 Acetaminophen [Tylenol Tablet] 650 mg PO Q4H PRN PRN tablet 09/25/18 Cefdinir [Omnicef [equiv]] 300 mg PO Q12H #10 capsule 09/25/18 Dicyclomine HCl [Bentyl] 10 mg PO TIDAC #21 capsule 09/25/18 Ensure Enlive 120 ml PO 4X/DAY #100 liquid 09/25/18 The following prescriptions were given: Cefdinir [Omnicef [equiv]] 300 mg PO Q12H #10 capsule Dicyclomine HCl [Bentyl] 10 mg PO TIDAC #21 capsule Ensure Enlive 120 ml PO 4X/DAY #100 liquid Primary Care Physician: Duncan Medina MD [Primary Care Provider] - Please follow up with your Primary Care Physician in: within 1-2 weeks Test Results: Test results from this visit will be discussed in further detail at your follow- up appointment, if applicable. Proposed Discharge Date: 09/25/18
[2018-09-25] MEDS: Acetaminophen 325 MG Tablet 650 MG PO (09:20)
[2018-09-25] MEDS: DOXEPIN HCL 50 MG CAPSULE PO (09:20)
[2018-09-25] MEDS: Ceftriaxone 1 GM/50 ML BAG IV (10:14)
--- NOTE | 2018-09-25 10:59 | PCA ---
RECEIVED RECORDS FROM [facility] IN [place] AND [facility] IN [place]. HAVENT RECEIVED ANYTHING YET FROM [facility]
--- NOTE | 2018-09-25 12:19 | NURSING ---
PT TOLERATED APPROX 1/2 REG LUNCH. REPORTS SLIGHT NAUSEA THAT SUBSIDED QUICKLY. DR CHIN NOTIFIED.
[2018-09-25 13:00] VITALS: BP 114/70; PULSE 85; RESP 18; TEMP 36.4; O2SAT 96
[2018-09-25 13:38] VITALS: BP 114/70; PULSE 85; RESP 18; TEMP 37; O2SAT 96
--- NOTE | 2018-09-26 05:40 | DS.PCM_ITS ---
Discharge Date and Diagnosis Date of Admission: 09/24/18 Date of Discharge: 09/25/18 - Primary Discharge Diagnosis Intractable nausea and vomiting Cyclical vomiting syndrome Acute kidney injury Sepsis secondary to UTI - Secondary Discharge Diagnosis Polysubstance use disorder Chronic pain syndrome Hospital Course and Treatment Imaging Results: Clinical Impression(s) from Imaging Studies Acute Abdomen Series 09/24/18 00:51 IMPRESSION: Normal x-ray examination of the chest, abdomen, and pelvis. Electronically Signed: Akshat De La Cruz MD at 2:17 EST , Service support , Abdomen CT 09/24/18 01:41 IMPRESSION: No evidence of acute intestinal pathology or acute obstructive uropathy. Electronically Signed: Sage Jacob MD at 4:16 EST Tel , Service support , None Operations: None Procedures: None Summary of Care Provided: 32 y/o male who presented with fever, nausea and vomiting. He admits to use of marijuana. CT of the abdomen and pelvis were negative. Patient was managed as persistent nausea and vomiting second to cyclical vomiting syndrome. He was on IV fluids and antiemetic. He was also managed as possible UTI with IV ceftriaxone. He came in with acute kidney injury secondary dehydration which resolved with IV fluids. Patient continued to improve and was able to tolerate a regular diet prior to discharge. He was strongly advised to stop using illicit drugs. Subjective: On the day of discharge, patient was seen and examined. He feels improved. Able to tolerate some food. Denies any fever or chills. - Physical Exam General: Alert, Oriented x3, Cooperative, No apparent distress HEENT: Atraumatic, PERRLA, EOMI, Normocephalic Neck: Supple, No JVD, Negative Carotid Bruits Lungs: Clear to auscultation, Normal air movement Cardiovascular: Regular rate, No murmurs Abdomen: Bowel Sounds Present, Soft, Non Tender Extremities: No edema, Capillary Refill Less than 3 Seconds Skin: No rashes, No breakdown Musculoskeletal: No Tenderness to Palpation of Joints or Extremities Neurological: Cranial nerves II-XII grossly intact Psych/Mental Status: Normal Affect, Appropriate Vital Signs Temp Pulse Resp BP Pulse Ox 98.6 F 85 18 114/70 96 09/25/18 13:38 09/25/18 13:38 09/25/18 13:38 09/25/18 13:38 09/25/18 13:38 Oxygen Delivery Method Room Air Weight: 75.3 kg Body Mass Index (BMI) 23.8 Intake and Output for Last 24 Hours 09/24/18 09/25/18 09/26/18 23:59 23:59 23:59 Intake Total 1263 / 1263 2576 / 2576 Output Total 350 / 350 Balance 913 / 913 2576 / 2576 Microbiology Past 72 Hours 09/24/18 03:30 Urine Culture - Preliminary Urine, Clean Catch Culture exhibits no growth. Laboratory Tests Past 24 Hrs 09/25/18 09/25/18 05:50 05:50 WBC 9.4 RBC 4.02 L Hgb 12.3 L Hct 36.5 L MCV 90.8 MCH 30.6 MCHC 33.7 RDW 12.6 RDW Differential 41.7 Plt Count 242 MPV 10.0 Immature Gran % (Auto) 0.200 Neut % (Auto) 60.6 Lymph % (Auto) 27.6 [place] % (Auto) 10.0 Eos % (Auto) 1.1 Baso % (Auto) 0.5 Absolute Neuts (auto) 5.7 Absolute Lymphs (auto) 2.59 Total Counted Not Reportable Sodium 142 Potassium 3.5 Chloride 113 H Carbon Dioxide 21.0 Anion Gap 8 BUN 11 Creatinine 0.63 L Estim Creat Clear Calc 170.59 Est GFR (MDRD) Af Amer 186 Est GFR (MDRD) Non-Af 154 BUN/Creatinine Ratio 17.4 Glucose 95 Calcium 7.6 L Discharge Diet: No Restrictions Discharge Activity: Return to Normal Activity Home Medications: Medications to take at Discharge Albuterol IH (ProAir) [Proair Hfa] 2 puff INHALATION Q4H PRN PRN 03/08/17 Quetiapine Fumarate [Seroquel] 100 mg PO QHS 03/08/17 Doxepin HCl 50 mg PO QHS 09/24/18 Levothyroxine [Synthroid] 50 mcg PO DAILY 09/24/18 Omeprazole [Prilosec] 20 mg PO QHS 09/24/18 Acetaminophen [Tylenol Tablet] 650 mg PO Q4H PRN PRN tablet 09/25/18 Cefdinir [Omnicef [equiv]] 300 mg PO Q12H #10 capsule 09/25/18 Dicyclomine HCl [Bentyl] 10 mg PO TIDAC #21 capsule 09/25/18 Ensure Enlive 120 ml PO 4X/DAY #100 liquid 09/25/18 Following Prescrptions Were Given to Patient: Cefdinir [Omnicef [equiv]] 300 mg PO Q12H #10 capsule Dicyclomine HCl [Bentyl] 10 mg PO TIDAC #21 capsule Ensure Enlive 120 ml PO 4X/DAY #100 liquid Primary Care Physician: Duncan Medina MD [Primary Care Provider] - Please follow up with your Primary Care Physician in: within 1-2 weeks Disposition: Home Minutes spent on discharge:: 40 Patient Condition:: Stable Medical Necessity - Tobacco Use Smoking Status: Current every day smoker Tobacco Use: Cigarettes Meaningful Use Info Meaningful Use Diagnoses (Choose all that apply): None applicable Code Visit Inpatient E&M: 95551 Disch Hosp
== END 2018-09-25 13:38 | disposition home or self-care (01) ==
LOC: ED 04:32 → MS3 04:59
PROVIDERS: Admitting Provider Student in an Organized Health Care Education/Training Program; Emergency Provider Emergency Medicine; Family Provider Family Medicine; PCP Family Medicine; Visit Provider Internal Medicine
DX: G43.A1 Cyclical vomiting, in migraine, intractable (principal); R19.7 Diarrhea, unspecified; A41.9 Sepsis, unspecified organism; R07.9 Chest pain, unspecified; N17.9 Acute kidney failure, unspecified; N39.0 Urinary tract infection, site not specified; E86.0 Dehydration; G89.4 Chronic pain syndrome; F12.188 Cannabis abuse with other cannabis-induced disorder; E03.9 Hypothyroidism, unspecified; F20.9 Schizophrenia, unspecified; F17.210 Nicotine dependence, cigarettes, uncomplicated; Z79.899 Other long term (current) drug therapy
CPT/HCPCS: 36415; 74022; 74150; 80048; 80053; 80307; 81001; 83605; 83690; 85025; 87040; 87086; 96361; 96365; 96366; 96367; 96368; 96372; 96375; 96376; 99218; 99284; 99406; J7030; A4216; G0378; J2405

== ENCOUNTER 2018-09-30 13:48 | Emergency (ER) | payer OTHER, SELFPAY ==
[2018-09-24 05:33] VITALS: BMI 23.8
[2018-09-30 13:49] VITALS: BP 129/103; BP 130/107; PULSE 117; PULSE 120; RESP 24; TEMP 36.7; O2SAT 97; BMI 24.4
--- NOTE | 2018-09-30 14:04 | ED.DCSUM_ITS ---
- ER Visit Summary Date of Service: 09/30/18 Chief Complaint: Chronic abdominal pain History of Present Illness: The patient is a 32 M with a history of hyperemesis. He stopped smoking marijuana 11 days ago because he was concerned that this could be cannabis hyperemesis. He has been dealing with it for several years. Today's flareup is no different than usual, he thinks it is somewhat worse because he has not been smoking marijuana the past few days which used to transiently suppress it. His main concern is that he wants to make sure he is not hypokalemic. Physical Examination: Mucous membranes are fairly moist. Neck is supple. Abdomen is soft and nontender. No evidence of an acute surgical abdomen. Test Results: I ordered a BMP and IV fluids. Emergency Department Course and Treatment: He was ordered IV fluids and a BMP. Care will be turned over to the oncoming physician to check results and reevaluate. This note was generated with [employer] dictation software. It may contain incorrect words, spelling, and punctuation that were not noted in review of the chart prior to signing ED Disposition - Plan for ED Patient: Referrals: Duncan Medina MD [Primary Care Provider] -
[2018-09-30] MEDS: 0.9% Normal Saline 1,000 ML 1000 ML IV (15:06)
[2018-09-30] MEDS: proMETHazine 25 MG/ML Syringe 6.25 MG IV (15:06)
[2018-09-30 16:02] VITALS: BP 120/74; PULSE 90; RESP 16; O2SAT 100
[2018-09-30 16:50] LABS: Anion Gap 10 (5-15); BUN 33 mg/dL (7-18); BUN/Creat Ratio 33.4 RATIO (10-20); Chloride 102 mmol/L (98-107); Creatinine, Serum 0.99 mg/dL (0.70-1.30); EST Glomerular Filtration Rate 92 mL/min (>60); Est Glom Filt Rate - Afr Amer 111 mL/min (>60); Estimated Creatinine Clearance 108.56 ml/min; Glucose 94 mg/dL (74-106); Potassium 2.9 mmol/L (3.5-5.1); Sodium Level 135 mmol/L (136-145)
--- NOTE | 2018-09-30 16:55 | ED.VISSUMM ---
- ER Visit Summary Date of Service: 09/30/18 Chief Complaint: [] History of Present Illness: The patient is a 32 M [] Physical Examination: [] Test Results: [] Emergency Department Course and Treatment: [] Treatment Plan: [] Disposition: [] Impression: [] This note was generated with [employer] dictation software. It may contain incorrect words, spelling, and punctuation that were not noted in review of the chart prior to signing ED Disposition - Plan for ED Patient: Instructions: ED Potassium Deficiency, ED Nausea Vomiting Prescriptions: Potassium Chloride [K-Tab ER] 20 meq PO BID 10 Days #20 tablet.er Referrals: Duncan Medina MD [Primary Care Provider] -
--- NOTE | 2018-09-30 16:59 | ED.DCSUM_ITS ---
- ER Visit Summary Date of Service: 09/30/18 Chief Complaint: [] History of Present Illness: The patient is a 32 M [] Physical Examination: [] Test Results: [] Emergency Department Course and Treatment: [] Treatment Plan: [] Disposition: [] Impression: [] This note was generated with [employer] dictation software. It may contain incorrect words, spelling, and punctuation that were not noted in review of the chart prior to signing ED Disposition - Plan for ED Patient: Instructions: ED Potassium Deficiency, ED Nausea Vomiting Prescriptions: Potassium Chloride [K-Tab ER] 20 meq PO BID 10 Days #20 tablet.er Referrals: Duncan Medina MD [Primary Care Provider] -
[2018-09-30] MEDS: 0.9% Normal Saline 1,000 ML 999 ML IV (17:38)
[2018-09-30] MEDS: Potassium Chloride 10mEq/100mL 10 MEQ/100 ML IV.SOLN. 100 MEQ IV BOLUS ×4 (18:06→21:52)
[2018-09-30 18:19] VITALS: BP 124/81; PULSE 74; RESP 16; O2SAT 99
[2018-09-30 20:00] VITALS: PULSE 88; RESP 14
[2018-09-30 23:44] VITALS: BP 117/91; PULSE 78; RESP 14
== END 2018-09-30 23:45 | disposition home or self-care (01) ==
LOC: ED 14:08
PROVIDERS: Emergency Provider Emergency Medicine; Family Provider Family Medicine; PCP Family Medicine
DX: R11.2 Nausea with vomiting, unspecified (principal); E87.6 Hypokalemia; Z72.0 Tobacco use
CPT/HCPCS: 80048; 96361; 96365; 96367; 96375; 99285; J7030